=== PATIENT | female | born 1980 | race Caucasian/White ===

== ENCOUNTER 2020-01-08 14:00 | Emergency (ER) | payer BC, SELFPAY ==
--- NOTE | ~2020-01-08 | XR_ITS ---
XR lumbar spine 2-3V DATE: 01/08/2020 16:13 INDICATION: Low back pain TECHNIQUE: AP, lateral, coned lateral lumbosacral views COMPARISON: None FINDINGS: Normal alignment of the lumbar spine. No fracture or bone destruction or spondylolisthesis. The included lower thoracic and lumbar pedicles are intact. There is mild degenerative spurring at L 3-4 and L4-5. The sacroiliac joints appear normal. IMPRESSION: Minimal degenerative change; no fracture Reviewed, dictated and finalized at location B.
[2020-01-08 15:34] VITALS: BP 139/84; PULSE 75; RESP 16; TEMP 36.7; O2SAT 100
--- NOTE | 2020-01-08 16:36 | ED.GENADULT ---
HPI - General Adult General Chief complaint: Back Pain/Injury Stated complaint: lower back pain Time Seen by Provider: 01/08/20 16:37 Source: patient and RN notes reviewed Mode of arrival: ambulatory Limitations: no limitations History of Present Illness HPI narrative: 39-year-old female presents with complaints of LT lower back pain for approximately 3.5 hours. Aleve 220mg with no relief. Kassy says she bent over in shower to grab a bottle and felt a sharp pain in lower back with difficult standing up. History of herniated disc 2 years ago. Denies new injuries or falls. Radiating pain down the back of LT leg. Denies numbness or tingling. Denies fever or chills. No upper or lower extremity pain or weakness. Exacerbating factors consist of prolong standing and bending. Denies nausea, vomiting, or abdominal pain. Denies problems with urinating or having a bowel movement, LBM 1 day ago. No flank pain or hematuria or dysuria. Kassy denies being , LMP 2 weeks ago. Some parts of this dictation were generated by voice recognition software and may contain typographical and/or grammatical inaccuracies. Related Data Home Medications Medication Instructions Recorded Confirmed sertraline 100 mg PO DAILY 01/08/20 01/08/20 Allergies Allergy/AdvReac Type Severity Reaction Status Date / Time No Known Allergies Allergy Verified 01/08/20 16:02 Review of Systems Review of Systems: Narrative: CONSTITUTIONAL: Denies fever, chills, sweats. EYES: Denies visual changes, redness, discharge. ENT: Denies rhinorrhea, congestion, sore throat, otalgia. CARDIOVASCULAR: Denies chest pain, palpitations, edema. RESPIRATORY: Denies dyspnea, wheezing, cough. GASTROINTESTINAL: Denies abdominal pain, nausea, vomiting, diarrhea. GENITOURINARY: Denies dysuria, hematuria, abnormal discharge. SKIN: Denies rash or itching. MUSCULOSKELETAL: Complains of LT lower back pain with radiating posterior leg pain. Denies joint pain or myalgia. NEUROLOGIC: Denies numbness or focal weakness. PSYCHIATRIC: Denies anxiety or depression. All systems reviewed & are unremarkable except as noted in HPI and below. [facility] Past Medical History Medical History (Updated 01/09/20 @ 00:00 by Background Daemon) Anxiety Arm fracture, left Hypertension Surgical History Surgical History (Updated 01/08/20 @ 16:57 by JEMMA Ford) History of ankle surgery Left ankle pins inserted and removed History of removal of cyst From left fallopian tube Family History Family History (Updated 01/08/20 @ 16:57 by JEMMA Ford) Father Hypertension Social History Social History (Updated 01/08/20 @ 16:58 by JEMMA Ford) Smoking status: Current every day smoker Tobacco type: cigarettes Second hand tobacco smoke exposure: Yes Alcohol intake: current Substance use: never Living arrangements: with family Occupation/Education: occupation Gender identity (if verbalized by the patient): Female Comments At time of signature, agree with nurse past medical, surgical, social, and family history. There is no relevant family history pertinent to the presenting complaint. Exam Narrative: Exam Narrative: GENERAL: This is a well-nourished, well-developed patient, in no apparent distress. Talks in full sentences without deficits and ambulates with steady gait without dyspnea. HEAD: normocephalic, atraumatic. EYES: PERRL. Sclera clear/white. Vision is grossly intact. NECK: Neck supple, non-tender without lymphadenopathy, masses or thyromegaly. CARDIOVASCULAR: Regular rate and rhythm without murmurs, gallops, or rubs. RESPIRATORY: Clear to auscultation. Breath sounds equal bilaterally. No wheezes, rales, or rhonchi. GASTROINTESTINAL: Abdomen soft, non-tender, nondistended. Bowel sounds are active. No hepato-splenomegaly, or palpable masses. No guarding. SKIN: warm, intact with no suspicious lesions or rash, good te
[2020-01-08] MEDS: KETOROLAC (*BKC) 60 MG/2 ML VIAL IM (16:53)
== END 2020-01-08 17:10 | disposition home or self-care (01) ==
PROVIDERS: Emergency Provider Nurse Practitioner Family
DX: M54.5 Low back pain (principal); F17.210 Nicotine dependence, cigarettes, uncomplicated; F41.9 Anxiety disorder, unspecified; I10 Essential (primary) hypertension
CPT/HCPCS: 72100; 96372; 99213; G0463; J1885

== ENCOUNTER 2020-12-18 09:34 | Emergency (ER) | payer BC, SELFPAY ==
--- NOTE | ~2020-12-18 | XR_ITS ---
XR elbow LT min 3V DATE: 12/18/2020 10:16 INDICATION: Slipped backwards on concrete. Left elbow injury, pain TECHNIQUE: 4 views COMPARISON: None FINDINGS: No fracture or dislocation or joint effusion. No periosteal reaction or bone destruction. IMPRESSION: Negative Reviewed, dictated and finalized at location A. E TENDER IMPRESSION: Negative
--- NOTE | ~2020-12-18 | XR_ITS ---
XR elbow RT min 3V DATE: 12/18/2020 10:14 INDICATION: Slipped backwards on concrete. Right elbow injury, pain TECHNIQUE: 4 views COMPARISON: None FINDINGS: No fracture or dislocation or joint effusion. IMPRESSION: Negative Reviewed, dictated and finalized at location A. NG SETTER IMPRESSION: Negative
--- NOTE | ~2020-12-18 | XR_ITS ---
XR wrist RT min 3V DATE: 12/18/2020 10:16 INDICATION: Slipped backwards on concrete. Right wrist injury, pain TECHNIQUE: 4 views COMPARISON: None FINDINGS: No fracture or dislocation, periosteal reaction or bone destruction, joint space narrowing, erosive change or chondrocalcinosis. IMPRESSION: Negative Reviewed, dictated and finalized at location A. PLANT ATTENDANT IMPRESSION: Negative
[2020-12-18 09:40] VITALS: BP 148/95; PULSE 75; RESP 20; TEMP 37; O2SAT 100
--- NOTE | 2020-12-18 09:46 | ED.UPPEXIN ---
HPI - Extremity Injury (Upper) General Chief Complaint: Extremity Injury, Upper Stated Complaint: right wrist and elbow injury Time Seen by Provider: 12/18/20 09:46 Source: patient and RN notes reviewed Mode of arrival: ambulatory Limitations: no limitations History of Present Illness HPI narrative: 40-year-old female presents to [facility] with bilateral elbow pain and right wrist pain after slipping on water last night and falling. Patient does have snuffbox tenderness in the right wrist. Bruising and swelling noted bilateral ankles and at the wrist. Decreased range of motion secondary to pain. Capillary refill and sensation intact distal to injury. Positive radial pulse. Has taken ibuprofen last night with minimal relief. States that she was uncomfortable and could not sleep last night. Denies hitting head. No loss of consciousness. No back pain or neck pain Related Data Home Medications Medication Instructions Recorded Confirmed bupropion HCl 150 mg PO DAILY 12/18/20 12/18/20 escitalopram oxalate 20 mg PO DAILY 12/18/20 12/18/20 omeprazole 40 mg PO DAILY 12/18/20 12/18/20 Allergies Allergy/AdvReac Type Severity Reaction Status Date / Time No Known Allergies Allergy Verified 12/18/20 09:55 Review of Systems Review of Systems: Narrative: CONSTITUTIONAL: Denies fever, chills, or sweats. EYES: Denies visual changes, redness, or discharge. CARDIOVASCULAR: Denies chest pain, palpitations, or edema. RESPIRATORY: Denies cough or dyspnea. GASTROINTESTINAL: Denies abdominal pain, nausea, vomiting, or diarrhea. GENITOURINARY: Denies dysuria or hematuria. SKIN: Denies rash or itching. MUSCULOSKELETAL: Denies back pain. Bilateral elbow and right breast NEUROLOGIC: Denies headache, numbness, or weakness. PSYCHIATRIC: Denies anxiety or depression. All other systems reviewed are negative, except as documented in HPI. [facility] Past Medical History Medical History Anxiety Arm fracture, left Hypertension Surgical History Surgical History History of ankle surgery Left ankle pins inserted and removed History of removal of cyst From left fallopian tube Family History Family History Father Hypertension Social History Social History Smoking status: Current every day smoker Tobacco type: cigarettes Second hand tobacco smoke exposure: Yes Alcohol intake: current Substance use: never Gender identity (if verbalized by the patient): Female Comments At the time of my signature, I reviewed and agree with the nursing past medical, surgical, social, and family history. There is no relevant family history pertinent to the patient complaint. Exam Narrative: Exam Narrative: GENERAL: This is a well-nourished, well-developed patient, in no apparent distress. HEAD: normocephalic, atraumatic. EYES: PERRL. Sclera clear/white. Vision is grossly intact. EARS: External ears normal. NECK: Neck supple, non-tender without lymphadenopathy, masses or thyromegaly. CARDIOVASCULAR: Regular rate and rhythm without murmurs, gallops, or rubs. RESPIRATORY: Clear to auscultation. Breath sounds equal bilaterally. No wheezes, rales, or rhonchi. GASTROINTESTINAL: Abdomen soft, non-tender. SKIN: warm, intact with no suspicious lesions or rash, good texture and turgor. Bruising noted bilateral elbows and right wrist NEURO: awake, alert, and oriented to person, place and time. There were no obvious focal neurologic abnormalities. EXTREMITIES: No clubbing, cyanosis, or edema. Posterior bilateral elbows with bruising and swelling. Right wrist radial aspect bruising and swelling BACK: Nontender without deformity. No flank tenderness. Extrem: Elbow/forearm/wrist images: 1. Bruising noted with swelling 2. Bruising and swelling noted Hand/finger
== END 2020-12-18 10:46 | disposition home or self-care (01) ==
PROVIDERS: Emergency Provider Nurse Practitioner
DX: M25.531 Pain in right wrist (principal); S50.02XA Contusion of left elbow, initial encounter; S50.01XA Contusion of right elbow, initial encounter; W01.0XXA Fall on same level from slipping, tripping and stumbling without subsequent striking against object, initial encounter; F17.210 Nicotine dependence, cigarettes, uncomplicated; F41.9 Anxiety disorder, unspecified; I10 Essential (primary) hypertension
CPT/HCPCS: 73080; 73110; 99214; A4565; G0463

== ENCOUNTER 2022-02-19 18:22 | Emergency (ER) | payer BC, SELFPAY ==
[2022-02-19 18:27] VITALS: BP 141/81; PULSE 90; RESP 14; TEMP 37; O2SAT 100
--- NOTE | 2022-02-19 19:32 | ED.SKABFB ---
HPI - Skin/Abscess/Foreign Bdy General Chief complaint: Skin/Abscess/Foreign Body Stated complaint: Skin Sore Time Seen by Provider: 02/19/22 19:30 Source: patient Mode of arrival: ambulatory Limitations: no limitations History of Present Illness HPI narrative: 41 year old female who presents to [facility] care with complaints of 3 day history of abscess on the upper abdomen area that has increased in size and redness. Patient reports that she has history of previous skin abscess and is here to have this drained. Patient states that she attempted to try to get area to open up but was unable to get any drainage from abscess.Patient denies any chills or fevers or any body aches MD complaint: abscess/boil Onset (ago): day(s) (3) Treatments prior to arrival: attempted to drain pus at home and other (antibiotic ointment and warm compresses) Related Data Home Medications Medication Instructions Recorded Confirmed escitalopram oxalate 20 mg PO DAILY 12/18/20 02/19/22 phentermine 37.5 mg PO DAILY 02/19/22 02/19/22 Allergies Allergy/AdvReac Type Severity Reaction Status Date / Time No Known Allergies Allergy Verified 02/19/22 18:37 Review of Systems Review of Systems: CONSTITUTIONAL: Denies fever, chills, or sweats. EYES: Denies visual changes, redness, or discharge. ENT: Denies rhinorrhea, congestion, sore throat, or otalgia. CARDIOVASCULAR: Denies chest pain, palpitations, or edema. RESPIRATORY: Denies cough or dyspnea. GASTROINTESTINAL: Denies abdominal pain, nausea, vomiting, or diarrhea. GENITOURINARY: Denies dysuria or hematuria. SKIN: Denies rash or itching.positive for 4bpM2an abscess to upper abdomen with surrounding redness MUSCULOSKELETAL: Denies back pain, joint pain, or myalgia. NEUROLOGIC: Denies headache, numbness, or weakness. PSYCHIATRIC: Positive history of anxiety or depression. All systems reviewed & are unremarkable except as noted in HPI and below PMFSH Past Medical History Medical History Anxiety Arm fracture, left Hidradenitis suppurativa Hypertension Surgical History Surgical History History of ankle surgery Left ankle pins inserted and removed History of removal of cyst From left fallopian tube Family History Family History Father Hypertension Social History Social History Smoking status: Current every day smoker Tobacco type: cigarettes Second hand tobacco smoke exposure: Yes Alcohol intake: current Substance use: never Gender identity (if verbalized by the patient): Female Comments At time of signature, agree with nursing past medical, surgical, social and family history. There is no relevant family history pertinent to the presenting complaint Exam Narrative: GENERAL: Well-appearing, well-nourished, and in no acute distress. HEAD: Normocephalic, atraumatic. EYES: PERRLA and EOMI. ENT: Nares clear, no rhinorrhea or epistaxis. Mucous membranes moist.TM's normal no redness of throat or tonsil swelling. NECK: Supple.no lymphadenopathy CHEST: Clear to auscultation. No respiratory distress.SAO2 100% on room air HEART: Regular rate and rhythm. No murmur heard. Normal peripheral pulses. ABDOMEN: Soft, nontender, nondistended, normal active bowel sounds. EXTREMITIES: Normal range of motion. No edema. SKIN: Warm, dry, [id number] abscess to upper abdomen with surrounding redness, induration of tissue noted with pain stated to site, see procedure note NEURO: No focal deficits. Alert and oriented x3. Course Course Level of Care: Express Care Visit Vital Signs Vital signs: Vital Signs Temperature 37.0 C 02/19/22 18:27 Pulse Rate 90 02/19/22 18:27 Respiratory Rate 14 02/19/22 18:27 Blood Pressure 141/81 H 02/19/22 18:27 Pulse Oximetry 100 02/19/22
== END 2022-02-19 20:00 | disposition home or self-care (01) ==
PROVIDERS: Emergency Provider Registered Nurse; PCP Physician Assistant
DX: L02.211 Cutaneous abscess of abdominal wall (principal); I10 Essential (primary) hypertension
CPT/HCPCS: 10060; 99213; G0463

== ENCOUNTER 2022-10-19 12:23 | Emergency (ER) | payer BC, SELFPAY ==
[2022-10-19 12:26] VITALS: BP 158/97; PULSE 88; RESP 20; TEMP 36.9; O2SAT 100
--- NOTE | 2022-10-19 13:11 | ED.URI ---
HPI - URI/Sore Throat General Chief Complaint: Upper Respiratory Infection Stated Complaint: cold flu Time Seen by Provider: 10/19/22 13:11 Source: patient and RN notes reviewed Mode of arrival: ambulatory Limitations: no limitations History of Present Illness HPI Narrative: 42-year-old female presents with concern of for 12 day history of cough, productive thick yellow mucus, chest congestion and heaviness. Reports she has been taking Mucinex, DayQuil, Sudafed without relief. She reports some nasal congestion and rhinorrhea as well for that time. MD elicited complaint: cough Related Data Allergies Allergy/AdvReac Type Severity Reaction Status Date / Time No Known Allergies Allergy Verified 10/19/22 12:37 Review of Systems Review of Systems: CONSTITUTIONAL: Reports malaise. Denies chills, sweats, or fever. EYES: Denies visual changes, redness, or discharge. ENT: Reports rhinorrhea, congestion. Denies sinus pain, otalgia and sore throat. CARDIOVASCULAR: Denies chest pain, palpitations, or edema. RESPIRATORY: Reports productive cough and chest congestion. Denies dyspnea. GASTROINTESTINAL: Denies abdominal pain, nausea, vomiting, diarrhea SKIN: Denies rash or itching. MUSCULOSKELETAL: Denies myalgia. NEUROLOGIC: Denies headache. All systems reviewed & are unremarkable except as noted in HPI and below PMFSH Past Medical History Medical History Anxiety Arm fracture, left Hidradenitis suppurativa Hypertension Surgical History Surgical History History of ankle surgery Left ankle pins inserted and removed History of removal of cyst From left fallopian tube Family History Family History Father Hypertension Social History Social History Smoking status: Current every day smoker Tobacco type: cigarettes Second hand tobacco smoke exposure: Yes Alcohol intake: current Substance use: never Gender identity (if verbalized by the patient): Female Comments At time of signature, agree with nursing past medical, surgical, social and family history. There is no relevant family history pertinent to the presenting complaint Exam Narrative: GENERAL: Nontoxic-appearing and in no acute distress. HEAD: Normocephalic EYES: PERRLA, conjunctivae clear ENT: Nares clear, turbinates edematous and erythematous. Mucous membranes moist. TM pearly daniels with dull light reflex bilaterally; no tragal tenderness. Oropharynx not erythematous without lesions. Tonsils not enlarged and without exudate, no drooling, no hoarseness, no trismus, uvula midline. NECK: Supple. No lymphadenopathy CHEST: Clear to auscultation, breath sounds equal. No wheezing, rhonchi, rales, or stridor. No respiratory distress, speaks in full sentences. Cough noted HEART: Regular rate and rhythm. No murmur heard. SKIN: Warm, dry, no rash. NEURO: Alert and oriented x3. PSYCH: Normal mood and affect Course Course Emergency Course: Patient is aware of diagnosis, understands and agrees to treatment plan. Anticipatory guidance given. Patient agrees to follow-up as directed and is aware of reasons to seek care at the emergency department. Portions of this record may have been created with voice recognition software Level of Care: Express Care Visit Vital Signs Vital signs: Vital Signs Temperature 98.5 F 10/19/22 12:26 Pulse Rate 88 10/19/22 12:26 Respiratory Rate 20 10/19/22 12:26 Blood Pressure 158/97 H 10/19/22 12:26 Pulse Oximetry 100 10/19/22 12:26 Oxygen Delivery Room Air 10/19/22 12:26 Temperature 98.5 F 10/19/22 12:26 Pulse Rate 88 10/19/22 12:26 Respiratory Rate 20 10/19/22 12:26 Blood Pressure 158/97 H 10/19/22 12:26 Pulse Oximetry 100 10/19/22 12:26 Oxygen Delivery Room Air 10/19/22
== END 2022-10-19 13:20 | disposition home or self-care (01) ==
PROVIDERS: Emergency Provider Nurse Practitioner; PCP Physician Assistant
DX: J32.9 Chronic sinusitis, unspecified (principal); J40 Bronchitis, not specified as acute or chronic; F17.210 Nicotine dependence, cigarettes, uncomplicated; I10 Essential (primary) hypertension
CPT/HCPCS: 99213; G0463

== ENCOUNTER 2023-11-29 15:59 | Emergency (ER) | payer OTHER, SELFPAY ==
--- NOTE | ~2023-11-29 | XR_ITS ---
EXAM: XR knee LT min 4V DATE: 11/29/2023 17:26 HISTORY: KNI. LT. LAT. KNEE PAIN X 1 DAY. GANGLION CYST 2021. . COMPARISON: None available. FINDINGS: Decreased mineralization. No fracture or dislocation. No lytic or blastic lesion. Tricompa rtmental osteoarthritis, moderate in the medial compartment. No erosion or periosteal change. Soft ti ssues within normal limits. IMPRESSION: No acute osseous finding in the left knee. Reviewed, dictated and finalized at location K. CAL ASSISTANT [employer]NAL MEDICINE
[2023-11-29 16:14] VITALS: BP 148/82; PULSE 71; RESP 20; TEMP 36.6; O2SAT 100
--- NOTE | 2023-11-29 17:05 | ED.GENADULT ---
HPI - General Adult General Chief complaint: Extremity Injury, Lower Stated complaint: Left Knee swollen/pain Time Seen by Provider: 11/29/23 17:00 Source: patient Mode of arrival: ambulatory Limitations: no limitations History of Present Illness HPI narrative: 43-year-old female who presents to [facility] with complaints of left knee pain and swelling for one day duration. Patient reports left knee has throbbing pain and swelling noted to anterior aspect of knee with no known injury. Patient reports that she had an MRI of her left knee in past that showed ganglion cyst in [place] fat pad area of left knee. Patient reports that her pain in her left knee increases with ambulation and movement of her left knee with limping gait noted. MD complaint: left knee pain and swelling Onset (ago): day(s) (1) Location: left and lower extremity (knee) Severity scale (1-10): 6 Exacerbating factors: movement and other (ambulation) Treatments prior to arrival: NSAID and cold therapy Related Data Home Medications Medication Instructions Recorded Confirmed escitalopram oxalate 20 mg tablet 20 mg PO DAILY 11/29/23 11/29/23 ondansetron HCl 4 mg tablet 4 mg PO Q8H PRN Nausea And Vomiting 11/29/23 11/29/23 pantoprazole 40 mg tablet,delayed 40 mg PO DAILY 11/29/23 11/29/23 release Allergies Allergy/AdvReac Type Severity Reaction Status Date / Time ciprofloxacin [From Cipro] Allergy Mild Hives Verified 11/29/23 16:30 Review of Systems Review of Systems: CONSTITUTIONAL: Denies fever, chills, or sweats. EYES: Denies visual changes, redness, or discharge. ENT: Denies rhinorrhea, congestion, sore throat, or otalgia. CARDIOVASCULAR: Denies chest pain, palpitations, or edema. RESPIRATORY: Denies cough or dyspnea. GASTROINTESTINAL: Denies abdominal pain, nausea, vomiting, or diarrhea. GENITOURINARY: Denies dysuria or hematuria. SKIN: Denies rash or itching. MUSCULOSKELETAL: Denies back pain,positive for left knee pain and anterior knee swelling, or myalgia. NEUROLOGIC: Denies headache, numbness, or weakness. PSYCHIATRIC: Denies anxiety or depression. All systems reviewed & are unremarkable except as noted in HPI and below PMFSH Past Medical History Medical History Anxiety Arm fracture, left Hidradenitis suppurativa Hypertension Surgical History Surgical History History of ankle surgery Left ankle pins inserted and removed History of removal of cyst From left fallopian tube Family History Family History Father Hypertension Social History Social History (Updated 12/01/23 @ 21:48 by Marixa Hart NP) Smoking status: Current every day smoker Tobacco type: e-cigarettes/vaping Second hand tobacco smoke exposure: Yes Alcohol intake: current Substance use: never Living arrangements: with family Occupation/Education: occupation Gender identity (if verbalized by the patient): Female Comments At time of signature, agree with nursing past medical, surgical, social and family history. There is no relevant family history pertinent to the presenting complaint Exam Narrative: GENERAL: Well-appearing, well-nourished, and in no acute distress. HEAD: Normocephalic, atraumatic. EYES: PERRLA and EOMI. ENT: Nares clear, no rhinorrhea or epistaxis. Mucous membranes moist. NECK: Supple.no lymphadenopathy CHEST: Clear to auscultation. No respiratory distress.SAO2 100% on room air HEART: Regular rate and rhythm. No murmur heard. Normal peripheral pulses. ABDOMEN: Soft, nontender, nondistended, normal active bowel sounds. EXTREMITIES: Normal range of motion. No edema.Exception noted to left knee anterior aspect with pain and swelling with no reported injury. Patient unable to fully bend knee due to pain, gait cautious with limping noted, strong pedal pulse present
== END 2023-11-29 17:50 | disposition home or self-care (01) ==
PROVIDERS: Emergency Provider Registered Nurse; PCP Physician Assistant
DX: M25.562 Pain in left knee (principal); I10 Essential (primary) hypertension; F17.290 Nicotine dependence, other tobacco product, uncomplicated; Z79.899 Other long term (current) drug therapy
CPT/HCPCS: 73564; 99213; G0463

== ENCOUNTER 2024-06-04 10:05 | Emergency (ER) | payer BC, SELFPAY ==
[2024-06-04 10:12] VITALS: BP 133/84; PULSE 91; RESP 20; TEMP 36.8; O2SAT 100
--- NOTE | 2024-06-04 10:16 | ED.GENADULT ---
HPI - General Adult General Chief complaint: Ear Stated complaint: Sore Throat/ Ear Pain Time Seen by Provider: 06/04/24 10:16 Source: patient, RN notes reviewed and old records reviewed Mode of arrival: ambulatory Limitations: no limitations History of Present Illness HPI narrative: 44-year-old female express care for complaint of bilateral ear pain and pressure and sore throat day for 3 days. Patient reports increased discomfort with swallowing. Patient attempted to treat at home with ibuprofen and cough drops with little relief. Patient currently endorsing pain in throat at 8/10. Patient denies fever, shortness of breath, chest pain, headache, cough, pertinent medical history. Patient able to tolerate fluids by mouth. Respirations even and nonlabored. Patient able to speak in complete sentences without difficulty. Patient that mild distress from pain. Patient in no acute distress. Related Data Allergies Allergy/AdvReac Type Severity Reaction Status Date / Time ciprofloxacin [From Cipro] Allergy Mild Hives Verified 11/29/23 16:30 Review of Systems Review of Systems: All systems reviewed & are unremarkable except as noted in HPI and below Constitutional: Constitutional: Reports as per HPI, Denies body ache(s) and Denies chills Eyes: Eyes: Reports no additional eye complaints ENT: Reports as per HPI, Denies change in voice, Reports otalgia ( Bilateral), Denies hoarseness, Reports sore throat and Reports throat swelling Cardiovascular: Cardiovascular: Reports no additional cardiovascular complaints, Denies chest pain and Denies dyspnea Respiratory: Respiratory: Reports no additional respiratory complaints, Denies cough and Denies dyspnea Musculoskeletal: Musculoskeletal: Reports no additional musculoskeletal complaints Neurologic: Reports system reviewed and no additional complaints, except as documented Psychiatric: Psychiatric: Reports no additional psychiatric complaints [facility] Past Medical History Medical History Anxiety Arm fracture, left Hidradenitis suppurativa Hypertension Surgical History Surgical History History of ankle surgery Left ankle pins inserted and removed History of removal of cyst From left fallopian tube Family History Family History Father Hypertension Social History Social History Smoking status: Current every day smoker Tobacco type: e-cigarettes/vaping Second hand tobacco smoke exposure: Yes Alcohol intake: current Substance use: never Living arrangements: with family Occupation/Education: occupation Gender identity (if verbalized by the patient): Female Comments At the time of my signature, I reviewed and agree with the nursing past medical, surgical, social, and family history. There is no relevant family history pertinent to the patient complaint. Exam Const: General: cooperative, no acute distress, alert, tired appearing, uncomfortable, well groomed and well nourished Nutritional Appearance: well nourished Orientation/consciousness: patient oriented x3 Limitations: no limitations HENMT: Head: normal to inspection Ears: external ears normal and TM abnormal bulging bilateral, erythematous bilateral and with fluid behind the TM bilateral Face/Nose/Sinus: Normal external nose present, Normal nares present, normal facial exam, No erythema and No edema Face and sinus: normal facial exam, no erythema and no edema Mouth: Yes Normal oral and palatal mucosa present Throat: uvula midline, abnormal tonsil bilateral erythema and hypertrophy, posterior oropharynx abnormal erythema, postnasal drainage and uvular edema (mild) Eyes: General: appearance normal, both eyes and all related structures Neck: Neck: normal visual inspe
[2024-06-04] MEDS: methylPREDNISolone ACETATE 80 MG/ML VIAL IM (10:28)
== END 2024-06-04 10:44 | disposition home or self-care (01) ==
PROVIDERS: Emergency Provider Nurse Practitioner Family; PCP Physician Assistant
DX: H66.93 Otitis media, unspecified, bilateral (principal); F17.290 Nicotine dependence, other tobacco product, uncomplicated; I10 Essential (primary) hypertension
CPT/HCPCS: 96372; 99213; G0463; J1010